=== PATIENT | female | born 1975 | race Caucasian/White ===

== ENCOUNTER 2017-10-23 05:35 | Inpatient (IN) | payer OTHER ==
[~2017-10-23] VITALS: Ht 165 cm; Wt 77.6 kg
[~2017-10-23 05:35] MED LIST: PREN-65 PO
[2017-10-23] MEDS ORDERED: RINGERS SOLUTION,LACTATED 1,000 ML IV ONE (05:41)
[2017-10-23] MEDS ORDERED: METOCLOPRAMIDE HCL 5 MG/ML 2 ML VIAL IVP ONE (05:45)
[2017-10-23] MEDS ORDERED: CITRIC ACID/SODIUM CITRATE 30 ML SOLUTION UDCUP PO ONE (05:45)
[2017-10-23 05:56] VITALS: BP 110/55
[2017-10-23 06:41] LABS: HEMATOCRIT 35.6 % (36-46); HEMOGLOBIN 11.9 g/dL (12.0-16.0); MEAN CORPUSCULAR HEMOGLOBIN 30.1 pg (26.0-34.0); MEAN CORPUSCULAR HGB CONC 33.5 G/dL (31.0-37.0); MEAN CORPUSCULAR VOLUME 90 fL (80-100); RED BLOOD CELL COUNT(AUTO) 3.96 MIL/uL (4.00-5.20); RED CELL DISTRIBUTION WIDTH 14.1 % (11.5-14.5)
[2017-10-23 06:42] LABS: BASOPHILS % (AUTO) 0.3 % (0.0-2.0); EOSINOPHILS % (AUTO) 1.5 % (1.0-6.0); LYMPHOCYTES # (AUTO) 1.7 K/uL (1.0-4.8); LYMPHOCYTES % (AUTO) 18.2 % (22.0-44.0); MONOCYTES # (AUTO) 0.8 K/uL (0.1-1.0); NEUTROPHILS # (AUTO) 6.4 K/uL (1.8-7.7); PLATELET COUNT (AUTO) 237 K/uL (150-450)
[2017-10-23] MEDS ORDERED: INFLUENZA VIRUS VACCINE QVS 2017-18 (3YR+)/PF 60 MCG/0.5 ML SYRINGE IM ONE (06:45)
[2017-10-23] MEDS ORDERED: ACETAMINOPHEN 1000 MG/ISO-OSM 100 ML IV ONE ×2 (09:00→09:31)
[2017-10-23] MEDS ORDERED: DiphenhydrAMINE HCL 50 MG/ML VIAL IVP PRN ×2 (09:00)
[2017-10-23] MEDS ORDERED: NALBUPHINE HCL 10 MG/ML VIAL IVP PRN ×3 (09:00)
[2017-10-23] MEDS ORDERED: FentaNYL CITRATE-PF 100 MCG/2 ML VIAL IVP PRN ×2 (09:00)
[2017-10-23] MEDS ORDERED: MORPHINE SULFATE 10 MG/ML SYRINGE IVP PRN (09:00)
[2017-10-23] MEDS ORDERED: MEPERIDINE-PF 25 MG/ML SYRINGE IVP PRN (09:00)
[2017-10-23] MEDS ORDERED: NALOXONE HCL 0.4 MG/ML VIAL IVP PRN (09:00)
[2017-10-23] MEDS ORDERED: ONDANSETRON HCL 4 MG/2 ML VIAL IVP PRN ×2 (09:00)
[2017-10-23] MEDS ORDERED: ACETAMINOPHEN/CODEINE 300-30 MG TABLET PO PRN (09:15)
[2017-10-23] MEDS ORDERED: ACETAMINOPHEN 1000 MG/ISO-OSM 100 ML IV SCH (10:00)
[2017-10-23] MEDS ORDERED: OXYTOCIN 10 UNITS/ML VIAL IM ONE (12:00)
[2017-10-23] MEDS ORDERED: FentaNYL CITRATE-PF 100 MCG/2 ML VIAL IVP ONE (12:00)
[2017-10-23] MEDS ORDERED: ONDANSETRON HCL 4 MG/2 ML VIAL IVP ONE (12:00)
[2017-10-23] MEDS ORDERED: MORPHINE SULFATE/PF 0.5 MG/ML 10 ML AMP IVP ONE (12:00)
[2017-10-23] MEDS ORDERED: 0.9% SODIUM CHLORIDE 10 ML VIAL IVP ONE (12:00)
[2017-10-23] MEDS: DEXTROSE 5%-0.45% SODIUM CHL 1,000 ML IV SCH ×3 (12:59→21:31)
[2017-10-23] MEDS: ACETAMINOPHEN 1000 MG/ISO-OSM 100 ML IV SCH (17:29)
[2017-10-23] MEDS ORDERED: OXYGEN THERAPY IH SCH ×3 (20:00)
[2017-10-23] MEDS ORDERED: DEXTROSE 5%-0.45% SODIUM CHL 1,000 ML IV ONE ×2 (20:51→23:15)
[2017-10-23] MEDS: MAGNESIUM HYDROXIDE SUSPENSION 30 ML UDCUP PO SCH (21:00)
[2017-10-24] MEDS: DEXTROSE 5%-0.45% SODIUM CHL 1,000 ML IV SCH (01:12)
[2017-10-24] MEDS: ACETAMINOPHEN 1000 MG/ISO-OSM 100 ML IV SCH (01:13)
[2017-10-24] MEDS: LANOLIN 7 GM OINTMENT TP PRN (04:31)
[2017-10-24] MEDS: IBUPROFEN 800 MG TABLET PO SCH ×4 (04:31→20:05)
[2017-10-24] MEDS: MAGNESIUM HYDROXIDE SUSPENSION 30 ML UDCUP PO SCH ×2 (08:09→20:05)
[2017-10-24] MEDS: ACETAMINOPHEN/CODEINE 300-30 MG TABLET PO PRN (16:34)
[2017-10-25] MEDS: LANOLIN 7 GM OINTMENT TP PRN ×3 (02:30→09:25)
[2017-10-25] MEDS: IBUPROFEN 800 MG TABLET PO SCH ×4 (03:30→19:10)
[2017-10-25] MEDS: MAGNESIUM HYDROXIDE SUSPENSION 30 ML UDCUP PO SCH ×2 (09:24→20:35)
[2017-10-25] MEDS: ACETAMINOPHEN/CODEINE 300-30 MG TABLET PO PRN (12:57)
[2017-10-26] MEDS: IBUPROFEN 800 MG TABLET PO SCH ×2 (05:41)
[2017-10-26] MEDS ORDERED: IBUP-2070 PO (09:30)
[2017-10-26] MEDS ORDERED: PERCT PO (09:31)
[2017-10-26] MEDS ORDERED: DSS100 PO (09:32)
== END 2017-10-26 10:45 | disposition home or self-care (01) | DRG 766 ==
LOC: OBSVTOIN 05:35 → 4S 05:35
PROVIDERS: ADMIT Obstetrics & Gynecology; ATTEND Obstetrics & Gynecology
PROC: 10D00Z1 Extraction of Products of Conception, Low, Open Approach (ICD-10-PCS; principal; 2017-10-23)
DX: O34.211 Maternal care for low transverse scar from previous cesarean delivery (principal); Z37.0 Single live birth; Z3A.39 39 weeks gestation of pregnancy
CPT/HCPCS: 86850; 86900; 86901; 87081; J0131; J0690; J2274; J2405; J2590; J2765; J3010; J7120

== ENCOUNTER 2019-08-08 08:10 | Inpatient (IN) | payer OTHER ==
[~2019-08-08] VITALS: Ht 165.1 cm; Wt 78.0 kg
[~2019-08-08 08:10] MED LIST changes: +DSS100 PO; +IBUP-2070 PO; +PERCT PO
[2019-08-08] MEDS ORDERED: RINGERS SOLUTION,LACTATED 1,000 ML IV ONE (08:17)
[2019-08-08] MEDS ORDERED: METOCLOPRAMIDE HCL 5 MG/ML 2 ML VIAL IVP ONE (08:30)
[2019-08-08] MEDS ORDERED: CITRIC ACID/SODIUM CITRATE 30 ML SOLUTION UDCUP PO ONE (08:30)
[2019-08-08] MEDS ORDERED: METHYLERGONOVINE MALEATE 0.2 MG/ML VIAL IM ONE (08:30)
[2019-08-08 08:43] VITALS: BP 128/72
[2019-08-08 09:14] LABS: BASOPHILS % (AUTO) 0.5 % (0.0-2.0); EOSINOPHILS % (AUTO) 0.8 % (1.0-6.0); HEMATOCRIT 36.4 % (36-46); HEMOGLOBIN 12.1 g/dL (12.0-16.0); LYMPHOCYTES # (AUTO) 1.8 K/uL (1.0-4.8); LYMPHOCYTES % (AUTO) 24.6 % (22.0-44.0); MEAN CORPUSCULAR HGB CONC 33.3 G/dL (31.0-37.0); MEAN CORPUSCULAR VOLUME 90 fL (80-100); MONOCYTES # (AUTO) 0.7 K/uL (0.1-1.0); MONOCYTES % (AUTO) 8.9 % (2.0-9.0); NEUTROPHILS # (AUTO) 4.9 K/uL (1.8-7.7); NEUTROPHILS % (AUTO) 65.2 % (40.0-70.0); PLATELET COUNT (AUTO) 203 K/uL (150-450); RED BLOOD CELL COUNT(AUTO) 4.04 MIL/uL (4.00-5.20); RED CELL DISTRIBUTION WIDTH 14.6 % (11.5-14.5)
[2019-08-08] MEDS ORDERED: ONDANSETRON HCL 4 MG/2 ML VIAL IVP PRN ×2 (09:15→10:00)
[2019-08-08] MEDS ORDERED: NALBUPHINE HCL 10 MG/ML VIAL IVP PRN ×2 (09:15)
[2019-08-08] MEDS ORDERED: NALOXONE HCL 0.4 MG/ML VIAL IVP PRN (09:15)
[2019-08-08] MEDS ORDERED: MORPHINE SULFATE 10 MG/ML SYRINGE IVP PRN (09:15)
[2019-08-08] MEDS ORDERED: DiphenhydrAMINE HCL 50 MG/ML VIAL IVP PRN (09:15)
[2019-08-08] MEDS ORDERED: FentaNYL CITRATE-PF 100 MCG/2 ML VIAL IVP PRN ×2 (09:15→10:00)
[2019-08-08] MEDS ORDERED: BUPIVACAINE HCL/DEX-WATER/PF 0.75% 2 ML AMP ONE (09:31)
[2019-08-08] MEDS ORDERED: ACETAMINOPHEN 1000 MG/ISO-OSM 100 ML IV ONE (09:31)
[2019-08-08] MEDS ORDERED: MORPHINE SULFATE/PF 1 MG/ML 10 ML AMP ONE (09:31)
[2019-08-08] MEDS ORDERED: MEPERIDINE-PF 25 MG/ML VIAL IVP PRN (10:00)
[2019-08-08] MEDS ORDERED: TRANEXAMIC ACID 1,000 MG in DEXTROSE 5%-WATER 50 ML IV ONE (11:45)
[2019-08-08] MEDS ORDERED: LANOLIN 7 GM OINTMENT TP PRN (12:00)
[2019-08-08] MEDS ORDERED: DEXTROSE 5%-0.45% SODIUM CHL 1,000 ML IV ONE (12:59)
[2019-08-08] MEDS: DEXTROSE 5%-0.45% SODIUM CHL 1,000 ML IV SCH ×2 (13:01→21:08)
[2019-08-08] MEDS ORDERED: KETOROLAC TROMETHAMINE 30 MG/ML VIAL IVP SCH (16:00)
[2019-08-08] MEDS: ACETAMINOPHEN 1000 MG/ISO-OSM 100 ML IV SCH (19:25)
[2019-08-08] MEDS ORDERED: OXYGEN THERAPY IH SCH ×2 (20:00)
[2019-08-08] MEDS: MAGNESIUM HYDROXIDE SUSPENSION 30 ML UDCUP PO SCH (20:55)
[2019-08-08] MEDS: KETOROLAC TROMETHAMINE 30 MG/ML VIAL IVP SCH (21:05)
[2019-08-09] MEDS: DEXTROSE 5%-0.45% SODIUM CHL 1,000 ML IV SCH ×2 (01:02→04:54)
[2019-08-09] MEDS: ACETAMINOPHEN 1000 MG/ISO-OSM 100 ML IV SCH (01:03)
[2019-08-09] MEDS: KETOROLAC TROMETHAMINE 30 MG/ML VIAL IVP SCH (03:27)
[2019-08-09] MEDS ORDERED: DEXAMETHASONE SOD PHOS 4 MG/ML VIAL IVP ONE (05:26)
[2019-08-09] MEDS ORDERED: ONDANSETRON HCL 4 MG/2 ML VIAL IVP ONE (05:26)
[2019-08-09] MEDS ORDERED: 0.9% SODIUM CHLORIDE 10 ML VIAL IVP ONE (05:26)
[2019-08-09] MEDS ORDERED: LIDOCAINE/PF 2% 5 ML VIAL IM ONE (05:26)
[2019-08-09] MEDS ORDERED: PROPOFOL 1% 20 ML VIAL IVP ONE (05:26)
[2019-08-09] MEDS ORDERED: OXYTOCIN 10 UNITS/ML VIAL IM ONE (05:26)
[2019-08-09] MEDS: MAGNESIUM HYDROXIDE SUSPENSION 30 ML UDCUP PO SCH ×2 (11:33→20:36)
[2019-08-09] MEDS: ACETAMINOPHEN/CODEINE 300-30 MG TABLET PO PRN ×3 (12:43→22:20)
[2019-08-09] MEDS: IBUPROFEN 800 MG TABLET PO SCH ×2 (14:36→20:36)
[2019-08-09] MEDS ORDERED: PREN-56 PO (20:34)
[2019-08-09] MEDS ORDERED: INFLUENZA VIRUS VACCINE QVS 2019-20 (3YR+)/PF 60 MCG/0.5 ML SYRINGE IM ONE (20:45)
[2019-08-10] MEDS: IBUPROFEN 800 MG TABLET PO SCH ×4 (01:56→22:40)
[2019-08-10] MEDS: MAGNESIUM HYDROXIDE SUSPENSION 30 ML UDCUP PO SCH ×2 (09:26→21:00)
[2019-08-10] MEDS ORDERED: SENNA/DOCUSATE SODIUM 8.6-50 MG TABLET PO ONE (13:45)
[2019-08-10] MEDS: ACETAMINOPHEN/CODEINE 300-30 MG TABLET PO PRN ×2 (13:55→21:00)
[2019-08-11] MEDS: IBUPROFEN 800 MG TABLET PO SCH (05:42)
[2019-08-11] MEDS ORDERED: SENNA/DOCUSATE SODIUM 8.6-50 MG TABLET PO ONE (09:00)
[2019-08-11] MEDS: MAGNESIUM HYDROXIDE SUSPENSION 30 ML UDCUP PO SCH (09:25)
[2019-08-11] MEDS: ACETAMINOPHEN/CODEINE 300-30 MG TABLET PO PRN (10:37)
[2019-08-11] MEDS ORDERED: IBUP-2071 PO (10:47)
== END 2019-08-11 11:40 | disposition home or self-care (01) | DRG 785 ==
LOC: 4S 08:10 → PREOBSVTOIN 08-21 09:47
PROVIDERS: ADMIT Obstetrics & Gynecology; ATTEND Obstetrics & Gynecology
PROC: 10D00Z1 Extraction of Products of Conception, Low, Open Approach (ICD-10-PCS; principal; 2019-08-08)
PROC: 0UB70ZZ Excision of Bilateral Fallopian Tubes, Open Approach (ICD-10-PCS; 2019-08-08)
DX: O34.211 Maternal care for low transverse scar from previous cesarean delivery (principal); Z37.0 Single live birth; O09.513 Supervision of elderly primigravida, third trimester; Z3A.39 39 weeks gestation of pregnancy
CPT/HCPCS: 86850; 86900; 86901; 86920; 87081; 88302; 90686; 99219; J0131; J0690; J1100; J1885; J2405; J2590; J2704; J3010; J3490; J7060